=== PATIENT | female | born 1955 | race Caucasian/White ===

== ENCOUNTER 2017-07-10 22:07 | Emergency (ER) | payer MEDICAID ==
[2017-07-10 23:45] LABS: microscopic required? NO
[2017-07-10 23:52] LABS: urine erythrocyte NEGATIVE (NEGATIVE)
[2017-07-11 00:27] LABS: BASOPHIL % 0.3 % (0-2); PLATELET COUNT 276 x10^3mcL (130-400); RED CELL DISTRIBUTION WIDTH 12.4 % (11.5-14.5)
[2017-07-11 00:35] LABS: CALCIUM 8.5 mg/dL (8.5-10.1); CHLORIDE SERUM 106 mmol/L (98-107); CREATININE SERUM 0.8 mg/dL (0.6-1.0); GFR1 > 60 mL/min; GLUCOSE SERUM 113 mg/dL (74-106); POTASSIUM SERUM 3.8 mmol/L (3.5-5.1); SODIUM SERUM 141 mmol/L (136-145)
[2017-07-11 00:40] LABS: ALBUMIN 3.6 g/dL (3.4-5.0); ALKALINE PHOSPHATASE 88 U/L (46-116); ALT/SGPT 29 U/L (14-59); AST/SGOT 26 U/L (15-37); BILIRUBIN TOTAL 0.3 mg/dL (0.20-1.00); LIPASE 215 IU/L (73-393); TOTAL PROTEIN, SERUM 7.5 g/dL (6.4-8.2)
[2017-07-11 01:21] LABS: C REACTIVE PROTEIN 0.2 mg/dL (<=0.9)
[2017-07-11 01:38] LABS: ERYTHROCYTE SED RATE 14 mm/hr (0-30)
[2017-07-11] MEDS ORDERED: NAPROSYN500 MG PO (01:53)
[2017-07-11] MEDS ORDERED: LEVOTHYROXIN0.025 M2 (01:53)
[2017-07-11] MEDS ORDERED: TRAMADOL HCL50 MG PO (01:54)
[2017-07-11] MEDS ORDERED: PREMARIN0.625 MG (01:55)
[2017-07-11 04:13] VITALS: BP 135/55
== END 2017-07-11 04:13 | disposition home or self-care (01) ==
LOC: ED 22:07
PROVIDERS: Emergency Medicine
DX: M48.061 Spinal stenosis, lumbar region without neurogenic claudication (principal); M54.32 Sciatica, left side; M51.36 Other intervertebral disc degeneration, lumbar region
CPT/HCPCS: J1885; J2270; J2405; J2930; J7030; Q9967